=== PATIENT | female | born 1995 | race Caucasian/White ===

== ENCOUNTER 2017-06-21 17:44 | Emergency (ER) | payer OTHER ==
[2017-06-21] MEDS: CLINDAMYCIN 300 MG INJ IM (22:35)
[2017-06-21] MEDS: ACETAMINOPHEN 500 MG TAB PO (22:35)
== END 2017-06-21 23:25 | disposition home or self-care (01) ==
LOC: FTE 17:44
DX: L02.411 Cutaneous abscess of right axilla (principal); F17.210 Nicotine dependence, cigarettes, uncomplicated
CPT/HCPCS: 96372; 99284-25

== ENCOUNTER 2017-06-24 13:38 | Emergency (ER) | payer OTHER ==
[2017-06-24] MEDS: IBUPROFEN 600 MG TAB PO (16:58)
[2017-06-24] MEDS: LIDOCAINE 1% (MDV) 20 ML INJ SC (16:59)
== END 2017-06-24 18:00 | disposition home or self-care (01) ==
LOC: FTE 13:38
DX: L02.411 Cutaneous abscess of right axilla (principal); Z87.891 Personal history of nicotine dependence
CPT/HCPCS: 10060; 99283-25

== ENCOUNTER 2017-06-26 09:09 | Emergency (ER) | payer OTHER | END 2017-06-26 11:10 | disposition home or self-care (01) | LOC: E/R 09:09 | DX: Z48.01 Encounter for change or removal of surgical wound dressing (principal); Z87.891 Personal history of nicotine dependence | CPT/HCPCS: 99281; Z7502 ==